=== PATIENT | male | born 1990 | race Caucasian/White ===

== ENCOUNTER 2020-06-26 15:47 | Emergency (ER) | payer OTHER ==
[~2020-06-26] VITALS: Ht 182.9 cm; Wt 77.1 kg
== END 2020-06-26 18:41 | disposition home or self-care (01) ==
LOC: ER 15:47
DX: S01.82XA Laceration with foreign body of other part of head, initial encounter (principal); S40.211A Abrasion of right shoulder, initial encounter; S50.811A Abrasion of right forearm, initial encounter; V19.9XXA Pedal cyclist (driver) (passenger) injured in unspecified traffic accident, initial encounter; Y93.89 Activity, other specified; Y92.488 Other paved roadways as the place of occurrence of the external cause; Y99.8 Other external cause status

== ENCOUNTER 2020-07-04 11:14 | Emergency (ER) | payer OTHER ==
[~2020-07-04] VITALS: Ht 182.9 cm; Wt 81.6 kg
== END 2020-07-04 12:56 | disposition home or self-care (01) ==
LOC: ER 11:14
DX: Z48.02 Encounter for removal of sutures (principal)